=== PATIENT | male | born 1975 | race Caucasian/White ===

== ENCOUNTER 2021-05-14 14:17 | Outpatient (REF) | payer OTHER, SELFPAY ==
--- NOTE | ~2021-05-14 | US_ITS ---
EXAMINATION: US EXTRACRANIAL CAROTID DUPLEX, BILATERAL CLINICAL INFORMATION: Dizziness and giddiness COMPARISON: None TECHNIQUE: Real-time ultrasound and Doppler techniques (integrating B-mode 2-D vascular images, Doppler spectral analysis and color-flow Doppler imaging) were utilized to interrogate the extracranial carotid arteries, the vertebral arteries and proximal subclavian arteries bilaterally. The degree of stenosis is determined by criteria similar to NASCET. FINDINGS: Right Side: 1. There is no atherosclerotic plaque seen in the bifurcation/proximal ICA region. 2. The common carotid artery PSV proximally is 143 cm/s and distally 122 cm/s. 3. The proximal internal carotid artery velocities are 96 cm/s systolic and 20 cm/s diastolic. 4. The proximal external carotid artery PSV is 118 cm/s. 5. The vertebral artery shows antegrade flow. 6. The subclavian artery waveforms are normal. Left Side: 1. There is no atherosclerotic plaque seen in the bifurcation/proximal ICA region. 2. The common carotid artery PSV proximally is 175 cm/s and distally 155 cm/s. 3. The proximal internal carotid artery velocities are 87 cm/s systolic and 28 cm/s diastolic. 4. The proximal external carotid artery PSV is 111 cm/s. 5. The vertebral artery shows antegrade flow. 6. The subclavian artery waveforms are normal. US/US carotid duplex BI IMPRESSION: 1. RIGHT: Normal right internal carotid artery without atherosclerotic plaque or hemodynamically significant stenosis. 2. LEFT: Normal left internal carotid artery without atherosclerotic plaque or hemodynamically significant stenosis.
== END 2021-05-14 14:18 | disposition home or self-care (01) ==
LOC: HO.HMGCX 14:17
PROVIDERS: PCP Internal Medicine; Visit Provider Naturopath
DX: Z13.6 Encounter for screening for cardiovascular disorders (principal); R06.03 Acute respiratory distress; R42 Dizziness and giddiness; E78.00 Pure hypercholesterolemia, unspecified
CPT/HCPCS: 93880

== ENCOUNTER 2023-11-20 13:29 | Emergency (ER) | payer OTHER, SELFPAY ==
--- NOTE | 2023-11-20 13:31 | ECG_ITS ---
Test Reason : CP/FLUTTER FEELING Blood Pressure : / mmHG Vent. Rate : 078 BPM Atrial Rate : 078 BPM P-R Int : 154 ms QRS Dur : 088 ms QT Int : 392 ms P-R-T Axes : 073 077 053 degrees QTc Int : 446 ms Normal sinus rhythm Normal ECG No previous ECGs available Referred By: Jose Obando Electronically Signed By:YANCI FRANKEL
[2023-11-20 13:33] VITALS: BP 143/78; PULSE 75; RESP 18; TEMP 36.8; O2SAT 97; BMI 23.6
--- NOTE | 2023-11-20 13:36 | ED.GENADULT ---
HPI - General Adult General Chief complaint: Arrhythmia/Palpitations Stated complaint: irregular heartbeat Time Seen by Provider: 11/20/23 15:35 Source: patient, RN notes reviewed and old records reviewed Mode of arrival: ambulatory Limitations: no limitations History of Present Illness HPI narrative: 48-year-old male presents for evaluation of what he feels like is an irregular heartbeat. his symptoms started yesterday resolved spontaneously and then happened again earlier this morning. patient reports that it does not feel like his heart is racing but skipping beats. He also states I feel awful when I am feeling it. Patient admits over the last 3 weeks he has been using pre workout for the 1st time in his life he last used this yesterday denies any chest pain and is currently asymptomatic Related Data Allergies Allergy/AdvReac Type Severity Reaction Status Date / Time Penicillins [PENICILLINS] Allergy Unknown UNKNOWN Unverified 08/08/20 15:03 Review of Systems Constitutional: Constitutional: Denies chills and Denies fever(s) Eyes: Eyes: Denies blurry vision ENT: Denies sore throat Cardiovascular: Cardiovascular: Denies chest pain, Denies syncope, Denies rapid heart rate, Reports palpitations and Reports dyspnea Respiratory: Respiratory: Denies cough and Reports dyspnea Gastrointestinal: Gastrointestinal: Denies abdominal pain, Denies nausea and Denies vomiting Musculoskeletal: Musculoskeletal: Denies back pain Integumentary/Breasts: Skin/Breast: Denies rash Neurologic: Denies syncope Psychiatric: Psychiatric: Reports anxiety Endocrine: Endocrine: Reports palpitations PMFSH Social History Social History Advance Directives: No Advance Directives Information Provided: No Physical Exam ED Vital Signs: Vital Signs - 24 hr 11/20/23 13:33 Temperature 98.2 F Pulse Rate 75 Respiratory Rate 18 Blood Pressure 143/78 H Pulse Oximetry 97 Oxygen Delivery Method Room Air BMI result Body Mass Index 23.6 Const General: healthy appearing, comfortable, no acute distress, alert and awake Nutritional Appearance: well nourished Orientation/consciousness: patient oriented x3 HENMT Head: Yes normocephalic and Yes atraumatic Throat: Yes posterior oropharynx normal Eyes Eyelids: Yes eyelids normal Conjunctivae: conjunctivae normal Sclerae: sclerae normal Corneas: corneas normal Pupils: Equal, round and reactive pupils present EOM: EOMs intact bilaterally Neck Neck: Yes full ROM Resp Effort & Inspection: normal respiratory effort, able to speak in complete sentences and not labored Cardio Rate: regular rate Rhythm: regular rhythm GI Inspection: No distended Palpation (GI): Soft to palpation, not firm, nontender, no guarding and not rigid Skin General skin exam: no rashes or lesions noted and elasticity normal Neuro General: patient oriented x3 Cranial nerves: Yes Equal, round and reactive pupils present and Yes Bilaterally intact EOM present Cognition (Neuro): normal cognition Extrem Other: Moving all extremities well without any obvious deformities Course Course Course Narrative: RME- 48 year old male presents for evaluation of palpitations. Symptoms started last night and felt irregular. Vitals stable. Plan for labs, EKG Medical Decision Making Medical Decision Making [facility] Narrative: 48-year-old male presents for evaluation any irregular heartbeat. In triage his heart rate is regular and the rhythm is regular. EKG shows normal sinus rhythm with rate of 78 beats per minute. No ectopy or arrhythmia. His labs are reassuring. He has been asymptomatic for 2 hours. Plan to discharge the patient for cardiology follow-up. He was encouraged to avoid pre workout and caffeine until he sees cardiology for further recommendations Differential Diagnosis Differential Diagnoses: The differential diagnosis associated with the presentation includes AFib A flutter Cardiac arrhythmia SVT Anxiety Palpitations Admission/Observation Consideration of admission/observation: Escalation of care including admission/observation considered patient was worked up for irregular heartbeat was found to be in a sinus rhythm and did not require admission Lab Data [facility] Lab Attestation statement: I reviewed the patient's lab results. no leukocytosis or anemia. No electrolyte abnormalities. Troponin undetectable. TSH within normal limits 11/20/23 14:24 11/20/23 14:24 Labs: Lab Results 11/20/23 Range/Units 14:24 WBC 5.0 (4.8-10.8) X10*3/uL RBC 4.98 (4.60-5.80) X10*6/uL Hgb 15.5 (14.0-18.0) g/dl Hct 44.4 (42.0-52.0) % MCV 89.2 (80.0-98.0) fL MCH 31.1 (27.0-33.0) pg MCHC 34.9 (31.0-36.0) g/dl RDW 11.7 (11.0-16.0) % Plt Count 234 (160-400) X10*3/uL MPV 9.5 (9.4-12.4) fL Immature Gran % (Auto) 0.2 (0.0-0.4) % Neut % (Auto) 63.8 (45-73) % Lymph % (Auto) 26.7 (20-40) % Baker % (Auto) 8.7 (2-11) % Eos % (Auto) 0.2 (0-4) % Baso % (Auto) 0.4 (0-2) % Lymph # (Auto) 1.3 (1.2-4.9) X10*3/uL Baker # (Auto) 0.4 (0.1-1.2) X10*3/uL Eos # (Auto) 0.0 (0.0-0.4) X10*3/uL Baso # (Auto) 0.0 (0.0-0.2) X10*3/uL Abs Immat Gran (auto) 0.01 (0.00-0.03) X10*3/uL Absolute Neuts (auto) 3.2 (2.0-8.3) x10*3/uL Absolute Nucleated RBC 0.000 (0.0-0.012) X10*3/uL Nucleated RBC % (auto) 0.0 (0.0-0.2) /100WBC PT 12.0 (11.1-13.3) SEC INR 1.0 (0.9-1.1) Sodium 141 (135-145) mmol/L Potassium 3.9 (3.3-5.1) mmol/L Chloride 108 (96-108) mmol/L Carbon Dioxide 25 (22-29) mmol/L Anion Gap 12 (12-20) BUN 14 (9-16) mg/dL Creatinine 1.22 (0.5-1.4) mg/dL Estim Creat Clear Calc 74.8 Estimated GFR > 60 Random Glucose 112 (60-115) mg/dL Calcium 9.7 (8.4-10.2) mg/dL Total Bilirubin 0.9 (0.0-1.0) mg/dL AST 20 (5-37) U/L ALT 21 (0-40) U/L Alkaline Phosphatase 40 (39-117) U/L Troponin I High Sens < 2.7 (<3.5-35.0) ng/L Total Protein 7.0 (6.5-8.0) g/dL Albumin 4.4 (3.5-5.0) g/dL Lipase 18 (8-78) U/L TSH 1.25 (0.32-4.0) uIU/mL Discharge Plan Discharge Clinical Impression: Palpitations Patient Disposition: Home, Self-Care Instructions: Heart Palpitations (ED) Additional Instructions: you should avoid any pre workout or excessive amounts of caffeine until you see cardiology. I recommend you call Cardiology in requesting Holter monitor. You may also be recommended for a stress test return for new or worsening symptoms Referrals: Dean Ugarte MD [Physician] - (Palpitations ? Holter monitor) Interventions: ED Discharge Assessment Last Done: 11/20/23 15:37
[2023-11-20 14:28] LABS: MANUAL DIFF FLAG NO
[2023-11-20 14:32] LABS: Basophils Percent Auto 0.4 % (0-2); Eosinophils Percent Auto 0.2 % (0-4); Hematocrit 44.4 % (42.0-52.0); Hemoglobin 15.5 g/dl (14.0-18.0); Imm Gran Abs Auto 0.01 X10*3/uL (0.00-0.03); Imm Gran Pct Auto 0.2 % (0.0-0.4); Lymphocytes Absolute Auto 1.3 X10*3/uL (1.2-4.9); Lymphocytes Percent Auto 26.7 % (20-40); Mean Corpuscular HGB Conc 34.9 g/dl (31.0-36.0); Mean Corpuscular Hemoglobin 31.1 pg (27.0-33.0); Mean Corpuscular Volume 89.2 fL (80.0-98.0); Mean Platelet Volume 9.5 fL (9.4-12.4); Monocytes Absolute Auto 0.4 X10*3/uL (0.1-1.2); Monocytes Percent Auto 8.7 % (2-11); Neutrophils Absolute Auto 3.2 x10*3/uL (2.0-8.3); Neutrophils Percent Auto 63.8 % (45-73); Platelet Count 234 X10*3/uL (160-400); Red Blood Count 4.98 X10*6/uL (4.60-5.80); Red Cell Distribution Width 11.7 % (11.0-16.0)
[2023-11-20 14:55] LABS: Alanine Aminotransferase 21 U/L (0-40); Albumin Level 4.4 g/dL (3.5-5.0); Alkaline Phosphatase 40 U/L (39-117); Anion Gap 12 (12-20); Aspartate Amino Transferase 20 U/L (5-37); Bilirubin Total 0.9 mg/dL (0.0-1.0); Blood Urea Nitrogen 14 mg/dL (9-16); Calcium 9.7 mg/dL (8.4-10.2); Carbon Dioxide 25 mmol/L (22-29); Chloride 108 mmol/L (96-108); Creatinine Clr Calc Pharmacy 74.8; Estimated Glomerular Filt Rate > 60; Glucose Random 112 mg/dL (60-115); Lipase 18 U/L (8-78); Potassium 3.9 mmol/L (3.3-5.1); Sodium 141 mmol/L (135-145)
[2023-11-20 15:01] LABS: Troponin-I High Sensitivity < 2.7 ng/L (<3.5-35.0)
[2023-11-20 15:10] LABS: TSH reflex Free T4 1.25 uIU/mL (0.32-4.0)
== END 2023-11-20 15:45 | disposition home or self-care (01) ==
LOC: HO.ED 15:41
PROVIDERS: Physician Assistant; Emergency Provider Emergency Medicine; PCP Internal Medicine
DX: I49.9 Cardiac arrhythmia, unspecified (principal); R07.89 Other chest pain; Z79.899 Other long term (current) drug therapy
CPT/HCPCS: 36415; 80053; 83690; 84443; 84484; 85025; 85610; 93005; 99283

== ENCOUNTER → 2023-11-20 13:31 | Outpatient (BNV) | payer OTHER, SELFPAY | PROVIDERS: Emergency Provider Emergency Medicine; PCP Internal Medicine; Visit Provider Internal Medicine | DX: R07.9 Chest pain, unspecified (principal) | CPT/HCPCS: 93010 ==

== ENCOUNTER 2023-11-26 13:21 | Outpatient (AMB) | payer OTHER, SELFPAY ==
[2023-11-26 13:23] VITALS: BP 120/70; PULSE 73; BMI 23.6
--- NOTE | 2023-11-26 13:23 | MHC.OFFVIS ---
Intake Vital Signs 11/26/23 13:23 Height 5 ft 9 in Weight 160 lb 0.889 oz BMI 23.6 BP 120/70 Blood Pressure Location Lt brachial Position Sitting Pulse 73 Pulse Source Pulse Oximeter Intake [place] [facility] [place]ations Int[place] Note[place] [facility] [place]up on palpitations pt its its feeling fine. 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 He was referred to Cardiology for further evaluation. Today presents for cardiology consultation and reports that he has been getting skips in his heartbeat. For the last few weeks he had been having a pre workout drink which is a caffeinated beverage. He then noticed skips in his heartbeat and on the day of his ER evaluation his symptoms were much worse. It caused him much anxiety and fear over his condition. He had no chest discomfort at rest or with activity. No presyncope, syncope, falls. No shortness of breath, PND, orthopnea or edema. He works out in the gym a few times weekly doing lifting and cardio exercises. He denies any known history of heart disease. 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 He says his mother brother and sister have bicuspid aortic valves. [facility] Medical History (Updated 11/26/23 @ 14:35 by DAINA Bautista) Mast cell activation Anxiety Family history of first degree relative with bicuspid aortic valve Family History (Updated 11/26/23 @ 14:37 by BRITTANI BautistaC) Mother Bicuspid aortic valve Brother Bicuspid aortic valve Sister Bicuspid aortic valve Social History Alcohol intake: current Alcohol intake frequency: holidays/special occasions only Patient Tobacco Use Status: Never used Tobacco Review of Systems Const All systems reviewed & are unremarkable except as noted in HPI and below Denies chills, Denies fatigue, Denies fever(s), Denies frequent falls, Denies weakness, Denies weight gain and Denies weight loss ENT Denies dizziness Card Details: heart skipping beats Denies chest pain, Denies leg edema, Denies lightheadedness, Denies palpitations, Denies dyspnea and Denies dyspnea on exertion Resp Denies cough, Denies dyspnea and Denies dyspnea on exertion GI Denies hematochezia Musc Denies abnormal gait, Denies muscle weakness, Denies numbness, Denies radiating pain into limb and Denies tingling Neuro Denies abnormal gait, Denies dizziness, Denies frequent falls, Denies numbness, Denies tingling and Denies weakness Psych Reports anxiety Endo Denies fatigue and Denies palpitations Physical Exam Vital Signs: Last Vital Signs Pulse 73 11/26/23 13:23 BP 120/70 11/26/23 13:23 BMI result Body Mass Index 23.6 Const General: cooperative, healthy appearing, comfortable and no acute distress Orientation/consciousness: patient oriented x3 Neck Neck: Yes normal visual inspection Resp Effort & Inspection: normal respiratory effort Auscultation: clear to auscultation bilaterally, no crackles, no rales, no rhonchi and no wheezes Cardio Jugular venous distension: no JVD Rate: regular rate Rhythm: regular rhythm Heart sounds: S1 normal heart sound present, S2 normal heart sound present, no murmurs and no rubs Neuro General: patient oriented x3 Extrem General: Yes normal to inspection Psych Appearance: grossly normal Mental Status: mental status grossly normal Speech and movement: Normal speech and movement present Assessment & Plan Assessment & Plan (1) Palpitations: Code(s): R00.2 - Palpitations Plan: Recent ER evaluation for report of heart palpitations. EKG shows sinus rhythm, rate 78, normal RI, QRS and QTC intervals. TSH normal, no anemia, potassium 3.9. No acute findings were identified at that time. Today he describes that his heart skips a beat at times and he he can feel a strong pound. This can happen over and over again. His description sounds like extrasystoles specifically PVCs. He had been drinking a pre workout caffeinated beverage in the last few weeks which he believes may have contributed to this symptom. He denies any heart palpitations today. He has no cardiac history. No history of hypertension, hyperlipidemia or diabetes. He does have family history of bicuspid aortic valve including mother, sister, brother. He describes having an echo 15-20 years ago which showed that he had a tricuspid valve. No murmurs noted on examination. To further evaluate his heart palpitations will order a Holter monitor to assess for any concerning arrhythmia, frequency of any ectopy. Will order an echocardiogram to assess for structural heart disease including aortic valve issues. Instructed on avoidance of pre workout caffeinated beverages. Instructed on good hydration, ongoing activity as tolerated. He admits to high anxiety which can can attribute to the frequency of heart palpitate stations. Emergency care if needed for sustained rapid heartbeats. Cardiology follow-up in 4-6 weeks, sooner if needed. (2) Family history of first degree relative with bicuspid aortic valve: Code(s): Z82.79 - Family history of other congenital malformations, deformations and chromosomal abnormalities Plan: As above (3) Anxiety: Code(s): F41.9 - Anxiety disorder, unspecified Plan: As above, patient admits to this problem Plan Time spent on chart review, documentation, interview assessment Orders: Orders CA echo transthoracic complete Today R00.2 - Palpitations, Z82.79 - Family history of other congenital malformations, deformations and chromosomal abnormalities ECG 3 day holter monitor Today R00.2 - Palpitations Coding Level of Care Code New Pt Level 3 (91343) Diagnoses Palpitations R00.2 Family history of first degree relative with bicuspid aortic valve Z82.79 Anxiety F41.9 Time Spent (min) 26
== END 2023-11-26 14:05 | disposition home or self-care (01) ==
PROVIDERS: PCP Internal Medicine; Visit Provider Nurse Practitioner Family
DX: R00.2 Palpitations (principal); Z82.79 Family history of other congenital malformations, deformations and chromosomal abnormalities; F41.9 Anxiety disorder, unspecified
CPT/HCPCS: 99203

== ENCOUNTER → 2023-11-26 13:21 | Outpatient (BNVA) | payer OTHER, SELFPAY | PROVIDERS: PCP Internal Medicine; Visit Provider Nurse Practitioner Family ==

== ENCOUNTER → 2023-12-15 08:06 | Outpatient (REF) | payer OTHER, SELFPAY ==
--- NOTE | 2023-12-15 08:09 | HM_ITS ---
* Total monitoring time 10 days. * Underlying rhythm is sinus with an average rate of 69/Min. Range 42 to 150/Min. * Rare supraventricular and ventricular ectopy. * No significant pauses or AV blocks. * Patient markers used in association with sinus rhythm. * No diary events. MTDD
--- NOTE | 2023-12-15 08:09 | CA_ITS ---
Transthoracic Echocardiogram Patient (Last, First, Middle): Daniel Falk, Gender: Male Date of : 1975 Age: 48 Procedure Date: 12/15/2023 Procedure Type: Transthoracic Echocardiogram Location: OP Height: 175.26 cm Weight: 72.58 kg BSA: 1.88 m2 Heart Rate: bpm BP: 117 / 75 mmHg Pulping Machine Operator: GENA Referring MD: Janeth Meier LABORATORY EQUIPMENT CLEANERRamsey Scrap Iron Cutter: Isaias Dyer MD Symptoms: Z82.79 - Family history of other congenital malformations, deformations ... Study Quality: Adequate ECG Rhythm: Sinus Conclusions: - 1. Normal LV systolic and diastolic function 2. Normal cardiac valvular Doppler 3. Moderately dilated IVC with normal collapsibility, unclear etiology 4. No gross pericardial effusion Findings Left Ventricle Normal left ventricular size, thickness, and systolic function. The visually estimated ejection fraction is between 65-70%. Spectral Doppler is indicative of a normal filling pattern. Peak GLS is -22.9%, within normal limits. Right Ventricle Normal right ventricular cavity size and systolic function. Atria Both atria are normal in size. There is lipomatous hypertrophy of the interatrial septum. There is no evidence of interatrial shunt. Aortic Valve Normal aortic valve structure and function. There is no aortic valve stenosis. There is no aortic valve regurgitation. Mitral Valve Normal mitral valve structure and function. There is trace mitral valve regurgitation. There is no mitral valve stenosis. Pulmonic Valve The pulmonic valve is normal. There is trace pulmonic valve regurgitation. Tricuspid Valve Normal tricuspid valve structure. There is trace tricuspid valve regurgitation. The right ventricular systolic pressure is normal. The right ventricular systolic pressure is 23 mmHg. Mildly elevated right atrial pressure. There is no evidence of pulmonary hypertension. Great Vessels All visible segments of the aorta are normal in size. The pulmonary artery was not well visualized. Venous The inferior vena cava is moderately dilated and collapses greater than 50% with inspiration. Pericardium/Pleural There is no evidence of pericardial effusion. Prior Study Comparison No prior study available for comparison. Measurements 2D Linear Measurements IVSd: 0.78 0.6-0.9/0.6-1.0 cm LVIDd: 4.96 3.9-5.3/4.2-5.9 cm LVIDd Index: 2.64 2.4-3.2/2.2-3.1 cm/m2 LVIDs: 3.05 2.0-3.6 cm LVPWd: 0.76 0.7-1.1 cm LA Diam: 3.40 2.7-3.8/3.0-4.0 cm LAIDs Index: 1.81 1.5-2.3 cm/m2 LV Mass: 158.71 67-162/88-224 g LV Mass Index: 84.42 43-95/49-115 g/m2 LVOT Diam: 2.10 3.0+(-)1.3 cm 2D Systolic Function EF 4C: 66.70 >55% EF 2C: 69.00 >55% EF BiP: 67.00 >55% Mitral Valve MV Pk E: 0.84 MV PK A: 0.58 MV Decel Time: 242.00 E/A: 1.50 E'Lateral: 13.90 E'Medial: 10.80 E/E' Med: 7.80 E/E' Lat: 6.10 PHT: 71.00 MVA PHT: 3.10 Decel [place]: 3.49 Aortic Valve AoV Pk Demetrius: 1.24 AoV Mn Demetrius: 0.91 AoV VTI: 0.31 AoV Pk Grad: 6.00 Aov Mn Grad: 4.00 RITCHIE Cont.VTI: 2.58 LVOT LVOT Pk Demetrius: 1.19 LVOT Mn Demetrius: 0.72 LVOT VTI: 0.23 LVOT Pk Grad: 6.00 LVOT Mn Grad: 3.00 LVOT Diam: 2.10 LVOT Area: 3.46 Diastolic Function MV Pk E: 0.84 MV Pk A: 0.58 E/A: 1.50 E'Medial: 10.80 E/E' Med: 7.80 E' Laterial: 13.90 E/E' Lat: 6.10 Right Ventricle TAPSE (mm): 22.00 TVS' Demetrius: 14.40 Tricuspid Valve TR Pk Demetrius: 1.92 TR Pk Grad: 15.00 RA Press: 8.00 RVSP: 23.00 Great Vessels Aorta Sinus of Valsalva: 3.01 2.0-3.[address] [place]: 2.58 1.7-3.4 cm Ao Asc: 3.10 2.1-3.4 cm Updated in Other Vendor System with Status of Final Isaias Dyer MD electronically signed on 12/15/2023 4:22:03 PM with status of Final
== END ==
LOC: HO.CARD 08:06
PROVIDERS: PCP Internal Medicine; Visit Provider Nurse Practitioner Family
DX: R00.2 Palpitations (principal); Z82.79 Family history of other congenital malformations, deformations and chromosomal abnormalities
CPT/HCPCS: 93242; 93306; 93356

== ENCOUNTER → 2023-12-15 08:09 | Outpatient (BNV) | payer OTHER, SELFPAY | PROVIDERS: PCP Internal Medicine; Visit Provider Internal Medicine Cardiovascular Disease | DX: I47.10 Supraventricular tachycardia, unspecified (principal) | CPT/HCPCS: 93244; 93306 ==

== ENCOUNTER → 2023-12-27 13:42 | Outpatient (REF) | payer OTHER, SELFPAY ==
--- NOTE | 2023-12-27 13:46 | HM_ITS ---
Cardiac event monitor Indication: Palpitation Technique: Patient was hooked up to cardiac event monitor on 12/27/2023 for total period of 30 days. Compliance rate was only 58%. I was requested to read this study on 02/04/2024. Findings: Baseline rhythm was normal sinus rhythm with no significant pauses noted. No significant arrhythmias noted. No patient reported events. Conclusion: 1. Baseline normal sinus rhythm with no pauses or arrhythmias 2. No patient reported events MTDD
== END ==
LOC: HO.CARD 13:42
PROVIDERS: Visit Provider Nurse Practitioner Family
DX: R00.2 Palpitations (principal)
CPT/HCPCS: 93270

== ENCOUNTER → 2023-12-27 13:46 | Outpatient (BNV) | payer OTHER, SELFPAY | PROVIDERS: Visit Provider Internal Medicine Cardiovascular Disease | DX: R00.2 Palpitations (principal) | CPT/HCPCS: 93272 ==

== ENCOUNTER 2024-02-08 09:23 | Outpatient (AMB) | payer OTHER, SELFPAY ==
[2024-02-08 09:30] VITALS: BP 118/50; PULSE 75; BMI 23.5
--- NOTE | 2024-02-08 09:30 | A.OFFVIS_ITS ---
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 He now presents for follow-up. Today he reports he has had no recurrent heart palpitations since his last visit. Now believes his symptom of palpitation was related to stress, anxiety and POTS. He is describing all his issues with mast cell activation, POTS and shortness of breath since having COVID infection in 2019. He says he received no vaccines. He says none of these health issues were present prior to that time. He continues to have shortness of breath with physical activity including stair climbing and walking on inclines. He is very physically active and works out routinely. States his shortness of breath does limit him and causes him concern. He denies any chest discomfort at rest or with activity. No lightheadedness, presyncope, syncope, falls. No PND, orthopnea or edema. [facility] Medical History Mast cell activation Anxiety Family history of first degree relative with bicuspid aortic valve Family History Mother Bicuspid aortic valve Brother Bicuspid aortic valve Sister Bicuspid aortic valve Social History Alcohol intake: current Alcohol intake frequency: holidays/special occasions only Patient Tobacco Use Status: Never used Tobacco Review of Systems Const All systems reviewed & are unremarkable except as noted in HPI and below Card Details: palpitations resolved Denies chest pain, Reports dyspnea and Reports dyspnea on exertion Resp Reports dyspnea and Reports dyspnea on exertion Physical Exam Vital Signs: Last Vital Signs Pulse 75 02/08/24 09:30 BP 118/50 L 02/08/24 09:30 BMI result Body Mass Index 23.5 Const General: cooperative, healthy appearing, comfortable and no acute distress Orientation/consciousness: patient oriented x3 Neck Neck: Yes normal visual inspection and Yes no JVD Carotids: normal carotid upstroke Resp Effort & Inspection: normal respiratory effort Auscultation: clear to auscultation bilaterally, no crackles, no rales, no rhonchi and no wheezes Cardio Jugular venous distension: no JVD Rate: regular rate Rhythm: regular rhythm Heart sounds: S1 normal heart sound present, S2 normal heart sound present, no gallops, no murmurs and no rubs Peripheral pulses: Peripheral pulses 2+ throughout Neuro General: patient oriented x3 Extrem General: Yes normal to inspection, No no pedal edema and No calf tenderness Psych Appearance: grossly normal Mental Status: mental status grossly normal Speech and movement: Normal speech and movement present Assessment & Plan Assessment & Plan (1) Palpitations: Code(s): R00.2 - Palpitations Plan: Prior ER evaluation for report of heart palpitations. EKG shows sinus rhythm, rate 78, normal W[place], QRS and QTC intervals. TSH normal, no anemia, potassium 3.9. No acute findings were identified at that time. On last visit he describes that his heart skips a beat at times and he he can feel a strong pound. This can happen over and over again. His description sounds like extrasystoles specifically PVCs. He had been drinking a pre workout caffeinated beverage in the last few weeks which he believes may have contributed to this symptom. He has no cardiac history. No history of hypertension, hyperlipidemia or diabetes. Holter monitor done on 12/15/2023 for 10 days showing sinus rhythm with average heart rate 69, rare SVE and VE. For ongoing palpitations a cardiac event monitor was done on 12/27/2023 for a 30 day period with compliance 58% which showed normal sinus rhythm, no pauses or arrhythmias. Echocardiogram was done on 12/15/2023 showing EF 65-70%, no valve abnormalities, mild increase in th e right atrial pressure, no pulmonary hypertension. Today he reports no recurrent heart palpitations. Now believes that his stress, anxiety, POTS and the caffeinated drink all contributed. Instructed on avoidance of pre workout caffeinated beverages. Instructed on good hydration, ongoing activity as tolerated. Emergency care if needed for sustained rapid heartbeats. (2) Family history of first degree relative with bicuspid aortic valve: Code(s): Z82.79 - Family history of other congenital malformations, deformations and chromosomal abnormalities Plan: On echo patient has a normal aortic valve structure and function. (3) Anxiety: Code(s): F41.9 - Anxiety disorder, unspecified Plan: Can contribute to his heart palpitation (4) Shortness of breath on exertion: Code(s): R06.02 - Shortness of breath Plan: Symptom of shortness of breath with exertional activities over the last few years. He states this happened post COVID infection. He is very physically active and feels that this is limiting him. He has no history of lung issues. His echo did show mild increase in the right atrial pressure. Lungs are clear on examination. Will check a pulmonary function test to evaluate for any lung issue. Will refer to pulmonology if abnormal. Will check an exercise stress test to evaluate for any ischemia. Plan to call him with results. Cardiology office visit will be as needed. Plan Time spent on chart review, documentation, interview assessment Orders: Orders CA stress test Today R06.02 - Shortness of breath PFT pulmonary function test Today R06.02 - Shortness of breath Coding Level of Care Code Est Pt Level 3 (79378) Diagnoses Palpitations R00.2 Family history of first degree relative with bicuspid aortic valve Z82.79 Anxiety F41.9 Shortness of breath on exertion R06.02 Time Spent (min) 24
== END 2024-02-08 09:57 | disposition home or self-care (01) ==
PROVIDERS: PCP Internal Medicine; Visit Provider Nurse Practitioner Family
DX: R00.2 Palpitations (principal); Z82.79 Family history of other congenital malformations, deformations and chromosomal abnormalities; F41.9 Anxiety disorder, unspecified; R06.02 Shortness of breath
CPT/HCPCS: 99213

== ENCOUNTER → 2024-02-08 09:23 | Outpatient (BNVA) | payer OTHER, SELFPAY | PROVIDERS: PCP Internal Medicine; Visit Provider Nurse Practitioner Family ==

== ENCOUNTER → 2024-02-11 08:55 | Outpatient (REF) | payer OTHER, SELFPAY ==
--- NOTE | 2024-02-11 08:57 | CA_ITS ---
Acquisition Time: 2024-02-11 08:58:14 Total Exercise Time: 00:10:25 Test Indications: shortness of compliment Medications: none Protocol: DOLORES Max HR: 164 BPM 94% of Pred: 173 BPM Max BP: 156/068 mmHG Max Work Load: 12.4 METS Exercise stress test exercise 10 min 25 sec of Dolores protocol achieving 94% MPHR, with mild SOB, without chest discomfort, with isolated PVC, with normotensive response to exercise, without EKG changes. Test reviewed with Dr. Ugarte. Referred By: Janeth Meier Overread By: Alissa Moreno
== END ==
LOC: HO.CARD 08:55
PROVIDERS: Visit Provider Nurse Practitioner Family
DX: R06.02 Shortness of breath (principal)
CPT/HCPCS: 93017

== ENCOUNTER → 2024-02-11 08:57 | Outpatient (BNV) | payer OTHER, SELFPAY | PROVIDERS: Visit Provider Nurse Practitioner | DX: I49.3 Ventricular premature depolarization (principal) | CPT/HCPCS: 93016; 93018 ==

== ENCOUNTER 2024-03-03 14:33 | Outpatient (AMB) | payer OTHER, SELFPAY ==
--- NOTE | 2024-03-03 15:03 | AM.OFFVISNUR ---
Intake Vital Signs 03/03/24 15:06 03/03/24 15:06 BP 178/105 H 142/80 H Blood Pressure Location Rt brachial Rt brachial Position Sitting Sitting Intake Visit Reasons: palpitations/skipped beats EKG Allergies Penicillins [PENICILLINS] Allergy (Unknown, Unverified 02/08/24 09:32) UNKNOWN Nursing Note EKG done Patient seen by provider Coding
[2024-03-03 15:06] VITALS: BP 142/80; BP 178/105
== END 2024-03-03 15:17 | disposition home or self-care (01) ==
PROVIDERS: PCP Internal Medicine; Visit Provider Nurse Practitioner Family
DX: R94.31 Abnormal electrocardiogram [ECG] [EKG] (principal)
CPT/HCPCS: 93010

== ENCOUNTER → 2024-03-03 14:33 | Outpatient (BNVA) | payer OTHER, SELFPAY | PROVIDERS: PCP Internal Medicine; Visit Provider Nurse Practitioner Family | DX: R00.2 Palpitations (principal) | CPT/HCPCS: 93005 ==

== ENCOUNTER 2025-11-17 01:25 | Emergency (ER) | payer OTHER, SELFPAY ==
--- NOTE | 2025-11-17 01:27 | ED_ITS ---
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 He reports no direct splash or liquid exposure to his eyes during cleaning, specifically denied any splashing or direct exposure to the eyes, presents to the ED concern for possible chemical fume exposure. Symptoms involve both eyes, left eye less painful than right. Pain described as burning and similar to prior flash/arc dougherty he has experienced. Denies pain with extra-ocular movements, denies recent welding, cutting, or rust scraping activities. He did rub his eyes after onset of pain and had applied hand lotion earlier for bleach-induced dryness; unsure if hands were clean at the time. Patient reports he slept for approximately 1 hour and when he awoke symptoms had significantly increased. Patient reports he has rinsed his eyes with tap water proximally 5 times at home since onset of symptoms, without relief. The patient denies any corrective lenses other than ?cheater? reading glasses. Related Data Previous Rx's ?Medication ?Instructions ?Recorded metoprolol tartrate 25 mg tablet 12.5 mg (1/2 x 25 mg) PO BID PRN 03/03/24 palpitations #10 tabs Allergies Allergy/AdvReac Type Severity Reaction Status Date / Time Penicillins (PENICILLINS) Allergy Unknown UNKNOWN Verified 11/17/25 01:30 Review of Systems Review of Systems: Yes all other systems are reviewed and are negative PMF Past Medical History Medical History Mast cell activation Anxiety Family history of first degree relative with bicuspid aortic valve Family History Family History Mother Bicuspid aortic valve Brother Bicuspid aortic valve Sister Bicuspid aortic valve Social History Social History Alcohol intake: current Alcohol intake frequency: holidays/special occasions only Patient Tobacco Use Status: Never used Tobacco Advance Directives: No Advance Directives Information Provided: Yes Physical Exam Vital Signs: Vital Signs: Last Vital Signs Temp 98.3 F 11/17/25 01:28 Pulse 82 11/17/25 01:28 Resp 16 11/17/25 01:28 Pulse Ox 97 11/17/25 01:28 O2 Del Method Room Air 11/17/25 01:28 BMI result Body Mass Index 24.3 CONSTITUTIONAL: The patient appears non-toxic, well nourished and in no acute distress. Vital signs as documented. HEAD: Atraumatic, normocephalic. EYES: EOMs intact and nonpainful, pupils equal and appropriately reactive, conjunctiva clear on left, mild conjunctival injection on right, no exudate. Fluorescein staining reveals no corneal abrasion, direct examination reveals no visible foreign body in either eye. ENT: Nares patent, no discharge. Airway patent, no audible stridor, visible mucosa is pink and moist without noted lesions. NECK: trachea is midline, no obvious masses or gross abnormalities. CHEST: Symmetric movement, normal appearance. LUNGS: Non-labored work of breathing. CARDIAC: No evidence of hypoperfusion. ABDOMEN: Nondistended, no obvious injury. : Deferred. EXTREMITIES: Moves all extremities spontaneously without reported pain. No obvious injury or deformity noted. NEURO: Alert and oriented x3, CN II-XII appear grossly intact. Cerebellar Functioning grossly intact. Speech clear and appropriate. SKIN: Warm, dry, color appropriate. No rashes or lesions noted. Course Course Course Narrative: Carissa Shukri WAX POURER 11/17 127 This is a rapid medical exam. Deferred additional HPI, ROS, PE to primary provider. 50 yo male with no known medical history here with complaints of eye burning/pain/tearing after cleaning mold with a bleach product today. Does not use contacts or glasses. Will need visual acuity, eye exam VSS Medications Administered Discontinued Medications Generic Name Dose Route Start Last Admin Trade Name Freq PRN Reason Stop Dose Admin Fluorescein Sodium 1 strip 11/17/25 03:07 11/17/25 03:24 Fluorescein Sodium Strip EYE-BOTH 11/17/25 03:08 1 strip ONCE ONE Administration Tetracaine HCl 3 drop 11/17/25 03:06 11/17/25 03:24 Tetracaine Hcl 0.5% Oph Carissa 5 Ml Drops EYE-BOTH 11/17/25 03:07 3 drop ONCE ONE Administration Medical Decision Making Medical Decision Making MDM Narrative: 3:36 AM 11/17/2025 (Roberth FAY): The patient is a 50-year-old male presenting to the ED bilateral eye burning that began around 22:00 tonight while watching a movie, approximately eight hours after using bleach and vinegar solution around 14:00 to clean mold in his water-treatment room in the basement. He reports no direct splash or liquid exposure to his eyes during cleaning, specifically denied any splashing or direct exposure to the eyes, presents to the ED concern for possible chemical fume exposure. Symptoms involve both eyes, left eye less painful than right. Pain described as burning and similar to prior flash/arc dougherty he has experienced. Denies pain with extra-ocular movements, denies recent welding, cutting, or rust scraping activities. He did rub his eyes after onset of pain and had applied hand lotion earlier for bleach-induced dryness; unsure if hands were clean at the time. Patient reports he slept for approximately 1 hour and when he awoke symptoms had significantly increased. Patient reports he has rinsed his eyes with tap water proximally 5 times at home since onset of symptoms, without relief. The patient denies any corrective lenses other than ?cheater? reading glasses. On exam patient has mild conjunctival irritation of the right eye, left eye is unremarkable. Fluorescein staining reveals no corneal abrasion or foreign body. The patient's visual acuity is unchanged from his baseline. The patient's presentation is consistent with likely chemical irritation of the eyes. Seeing as there was no corneal abrasion, there was no need for antibiotic ointment at this time. Patient has been instructed to obtain an use rewetting drops, take anti-inflammatories for additional discomfort, and closely monitor for worsening symptoms. The patient will be discharged with supportive care. Discharge Plan Discharge Clinical Impression: Corneal irritation of both eyes Patient Disposition: Home, Self-Care Instructions: Chemical Eye Dougherty (ED) Additional Instructions: Thank you for choosing [facility]'s Emergency Department for your care today. Thankfully your symptoms today improved following interventions in the ED. Your exam shows no evidence of a corneal abrasion, there is no indication for a ntibiotic therapy at this time. Your vision exam shows no decreased vision, and as such there is no indication for admission to the hospital or continued ED observation, and it is safe to discharge you home. You likely suffered a corneal irritation of your eyes from chemical exposure. Please obtain doaz-maz-suvnniw rewetting drops and avoid rubbing your eyes. You should take alternating (staggered) doses of ibuprofen 600mg and Tylenol 1000mg every 4 hours as needed for any additional pain. Please follow up with your primary care physician for re-evaluation, referral to Ophthalmology as deemed appropriate, additional management of your symptoms, and continued preventative care. If you do not have a primary care physician, please call the [facility] at [phone] to establish a new primary care physician. While waiting to establish your new primary care physician, you can call our Walk-in Care [facility] at [phone] for non-emergency needs. Please return to the emergency department if you develop a severe or sudden change in your symptoms, decreased vision, painful movement of your eye, a fever over 100.4 that does not improve with Tylenol or Ibuprofen, recurrent vomiting, or any other new or worsening symptoms or concerns. Prescriptions: No Action metoprolol tartrate 25 mg tablet 12.5 mg PO BID PRN (Reason: palpitations) Qty: 10 0RF Print Language: Italian
[2025-11-17 01:28] VITALS: PULSE 82; RESP 16; TEMP 36.8; O2SAT 97; BMI 24.3
--- OUTSIDE RECORDS SUMMARY | 2025-11-17 02:21 | XMS_ITS | Clinical Summary ---
Author Organization [facility] it Address [address] [place] [id number] Care Team Providers Care Acrobatic Rigger Name Role Phone Scott Rutherford MD Primary Care Provider [phone] Social History Tobacco Use Types Packs/Day Years Used Date Smoking Tobacco: Never Assessed Sex and Gender Information Value Date Recorded Sex Assigned at Not on file Legal Sex Male 11:39 AM EDT Gender Identity Not on file Sexual Orientation Not on file Plan of Treatment Health Maintenance Due Date Last Done Comments Colorectal Cancer Screening: Colonoscopy 1976 DTaP,Tdap,and Td Vaccines (1 - Tdap) 1995 Hepatitis B Vaccines (1 of 3 - 19+ 3-dose series) 1995 Cholesterol Screening (Lipid Panel) 09/04/2024 HIV Screening 09/04/2024 Hepatitis C Screening 09/04/2024 Social Influencers of Health Screening 09/04/2024 Depression Screening 11/22/2024 COVID-19 Vaccine (1 - 2024-2 6 season) 2025 Influenza Vaccine (#1) 2025 RSV Immunization Adult Patie nts (1 - 1-dose 75+ series) 2051 HIB Vaccines Aged Out No longer eligi ble based on patient's age to complete this topic HPV Vaccines Aged Out No longer eligi ble based on patient's age to complete this topic Hepatitis A Vaccines Aged Out No long er eligible based on patient's age to complete this topic IPV Vaccines Aged Out No longer eligi ble based on patient's age to complete this topic MMR Vaccines Aged Out No longer eligi ble based on patient's age to complete this topic Meningococcal ACWY Vaccine Aged Out N o longer eligible based on patient's age to complete this topic Meningococcal B Vaccine Aged Out No l onger eligible based on patient's age to complete this topic Pneumococcal Vaccine: Pediat rics (0 to 5 Years) and At-Risk Patients (6 to 49 Years) Aged Out No longer eligible b ased on patient's age to complete this topic RSV Immunization Patients Un kiel 20 months Aged Out No longer eligible b ased on patient's age to complete this topic Varicella Vaccines Aged Out No longer eligible based on patient's age to complete this topic Care Teams Acrobatic Rigger Relationship Specialty Start Date End Date Scott Rutherford MD [address] [place] [id number] PCP - General 05/23/24
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
[2025-11-17] MEDS: Fluorescein Sodium STRIP 1 STRIP EYE-BOTH (03:24)
[2025-11-17] MEDS: Tetracaine HCl 0.5% Oph Sol 5 ML DROPS 3 DROP EYE-BOTH (03:24)
[2025-11-17 03:41] VITALS: BP 00/00; PULSE 82; RESP 16; TEMP 36.8; O2SAT 97
== END 2025-11-17 03:42 | disposition home or self-care (01) ==
PROVIDERS: Emergency Provider Emergency Medicine; PCP Internal Medicine
DX: H57.89 Other specified disorders of eye and adnexa (principal); H57.13 Ocular pain, bilateral
CPT/HCPCS: 99283